=== PATIENT | male | born 1985 | race Caucasian/White ===

== ENCOUNTER 2022-11-02 09:36 | Emergency (ER) | payer OTHER, MEDICAID ==
[~2022-11-02] VITALS: Ht 177.8 cm; Wt 65.0 kg
[2022-11-02 10:45] VITALS: BP 139/77
[2022-11-02] MEDS ORDERED: IBUP800T27 PO ×2 (11:01)
[2022-11-02] MEDS ORDERED: IBUPROFEN 800 MG TAB PO ONE (11:15)
[2022-11-02] MEDS ORDERED: TRAM-297 PO (11:40)
== END 2022-11-02 11:31 | disposition home or self-care (01) ==
LOC: ER 09:36
DX: S62.356A Nondisplaced fracture of shaft of fifth metacarpal bone, right hand, initial encounter for closed fracture (principal); W22.8XXA Striking against or struck by other objects, initial encounter; Y93.89 Activity, other specified; Y92.89 Other specified places as the place of occurrence of the external cause; Y99.8 Other external cause status
CPT/HCPCS: 29125; 73130

== ENCOUNTER 2023-09-28 10:18 | Inpatient (IN) | payer OTHER, MEDICAID ==
[~2023-09-28] VITALS: Ht 177.8 cm; Wt 59.3 kg
[~2023-09-28 10:18] MED LIST: TRAM-297 PO
[2023-09-28] MEDS: ONDANSETRON HCL 4 MG/2 ML VIAL IV ONE ×2 (10:59→16:54)
[2023-09-28] MEDS: SODIUM CHLORIDE 0.9% 1,000 ML IVB ONE (10:59)
[2023-09-28 11:21] LABS: Alanine Aminotransferase 29 U/L (7-40); Albumin 5.4 g/dL (3.2-4.8); Alkaline Phosphatase 68 U/L (46-116); Anion Gap 14 (5-15); Aspartate Aminotransferase 24 U/L (13-40); BUN/Creatinine Ratio 14.4 (10.0-20.0); Blood Alcohol < 3.0 mg/dL (<10); Blood Urea Nitrogen 16 mg/dL (9-23); Carbon Dioxide 22 mmol/L (20-30); Chloride 98 mmol/L (98-107); Glucose 134 mg/dL (74-106); Potassium 4.7 mmol/L (3.5-5.1); Sodium 134 mmol/L (136-145)
[2023-09-28 11:22] LABS: Bilirubin, Total 0.7 mg/dL (0.2-1.0); Total Protein 8.3 g/dL (5.7-8.2)
[2023-09-28 11:23] LABS: INR 0.99 (0.9-1.15); Partial Thromboplastin Time 27.2 SEC (24.5-34.5); Prothrombin Time 10.4 sec (9.3-11.8)
[2023-09-28] MEDS: IOHEXOL 300 MG/ML 100ML BOTTLE IJ ONE (11:36)
[2023-09-28 11:37] LABS: Basophils # (auto) 0 10 ^3/uL (0-0.2); Basophils % (auto) 0.3 % (0.0-2.0); Eosinophils # (auto) 0 10 ^3/uL (0-0.8); Eosinophils % (auto) 0.1 % (0.0-7.0); Hematocrit 48.7 % (41.0-53.0); Hemoglobin 16.3 g/dL (13.5-17.5); Lymphocytes # (auto) 0.9 10 ^3/uL (0.4-5.4); Lymphocytes % (auto) 11.4 % (10.0-50.0); Mean Corpuscular Hemoglobin 29.7 pg (28.0-32.0); Mean Corpuscular Hgb Conc. 33.5 g/dL (32.0-36.0); Mean Corpuscular Volume 88.6 fL (80.0-100.0); Monocytes # (auto) 0.5 10 ^3/uL (0-1.3); Monocytes % (auto) 6.6 % (0.0-12.0); Neutrophils # (auto) 6.6 10 ^3/uL (1.6-8.6); Neutrophils % (auto) 81.6 % (37.0-80.0); Nucleated Red Blood Cells % 0.4 %; White Blood Cell 8.1 10^3/uL (4.4-10.8)
[2023-09-28] MEDS: PANTOPRAZOLE 40mg/50ML NS AE 50 ML IV ONE (11:53)
[2023-09-28] MEDS: PANTOPRAZOLE 80 MG in SODIUM CHL 0.9% 100 ML IV ONE (11:56)
[2023-09-28] MEDS: MORPHINE SULFATE INJ 2 MG/ml SYRG IV ONE (12:01)
[2023-09-28 12:47] LABS: Lipase 54 U/L (12-53); Magnesium 2.1 mg/dL (1.6-2.6)
[2023-09-28 12:54] LABS: Urine Bacteria NONE SEEN /hpf (None Seen); Urine Blood TRACE /uL (Negative); Urine Clarity Clear (Clear); Urine Color Yellow (Yellow); Urine Mucus FEW (None Seen); Urine Protein, UAD 2+ (Negative); Urine Specific Gravity 1.035 (1.001-1.035); Urine WBC <1 /hpf (0 - 3)
[2023-09-28 13:06] LABS: Amphetamine Screen, Urine Neg (NEGATIVE); Barbiturate Scree,Urine Neg (NEGATIVE); Benzodiazephine Screen, Urine Neg (NEGATIVE); Cannabinoid Screen, Urine Pos (NEGATIVE); Cocaine Screen, Urine Neg (NEGATIVE); Opiate Scree,Urine Pos (NEGATIVE); Phencyclidine Screen, Urine Neg (NEGATIVE)
[2023-09-28] MEDS: HYDROmorphone HCL 2 MG/ML VL/or syr IV ONE (16:53)
[2023-09-28] MEDS: D5W/LACTATED RINGERS 1,000 ML IV ONE (18:00)
[2023-09-28 18:03] VITALS: PULSE 98; RESP 17; O2SAT 98
[2023-09-28] MEDS: HYDROmorphone HCL 2 MG/ML VL/or syr IV PRN (18:36)
[2023-09-28 20:00] VITALS: PULSE 74; RESP 18; O2SAT 100
[2023-09-28] MEDS: ONDANSETRON HCL 4 MG/2 ML VIAL IV PRN (21:28)
[2023-09-28] MEDS: HYDROcodone-ACET 5/325MG TAB PO PRN (21:28)
[2023-09-28] MEDS: SODIUM CHLOR 0.9% PF (SALINE LOCK) 10ML VIAL/SYR IV SCH (22:06)
[2023-09-28] MEDS: hydrOXYzine 25 MG TAB or CAP PO SCH (22:08)
[2023-09-29] VITALS (9 sets, daily range): BP systolic 111–134; BP diastolic 66–89; PULSE 57–99; RESP 16–20; TEMP 97.9–98.3; O2SAT 95–99
[2023-09-29] MEDS: PANTOPRAZOLE 40 MG/10 ML VIAL INJ IV SCH (01:21)
[2023-09-29] MEDS ORDERED: PANT40T PO (04:15)
[2023-09-29] MEDS: ENOXAPARIN SOD 40 MG/0.4 ML SYRINGE SC SCH (09:54)
[2023-09-29] MEDS: HYDROmorphone HCL 2 MG/ML VL/or syr IV PRN (23:59)
[2023-09-30] VITALS (7 sets, daily range): BP systolic 118–139; BP diastolic 63–86; PULSE 50–92; RESP 16–21; TEMP 97.4–98.5; O2SAT 95–100
[2023-09-30 05:50] LABS: Lipase 31 U/L (12-53)
[2023-09-30] MEDS: metroNIDAZOLE 500MG/100ML 100 ML IV SCH (05:50)
[2023-09-30 05:51] LABS: Amylase 66 U/L (30-118)
[2023-09-30 07:44] LABS: Basophils # (auto) 0 10 ^3/uL (0-0.2); Basophils % (auto) 0.5 % (0.0-2.0); Eosinophils # (auto) 0 10 ^3/uL (0-0.8); Eosinophils % (auto) 0.7 % (0.0-7.0); Hematocrit 42.4 % (41.0-53.0); Hemoglobin 14.1 g/dL (13.5-17.5); Lymphocytes # (auto) 1.7 10 ^3/uL (0.4-5.4); Lymphocytes % (auto) 43.2 % (10.0-50.0); Mean Corpuscular Hemoglobin 29.2 pg (28.0-32.0); Mean Corpuscular Hgb Conc. 33.2 g/dL (32.0-36.0); Mean Corpuscular Volume 87.8 fL (80.0-100.0); Monocytes # (auto) 0.4 10 ^3/uL (0-1.3); Neutrophils # (auto) 1.7 10 ^3/uL (1.6-8.6); Neutrophils % (auto) 44.6 % (37.0-80.0); Nucleated Red Blood Cells % 0.1 %; Red Blood Cells 4.83 10^6/uL (4.5-5.90); Red Cell Distribution Width 13.7 % (11.8-14.3); White Blood Cell 3.8 10^3/uL (4.4-10.8)
[2023-09-30 07:56] LABS: Alanine Aminotransferase 28 U/L (7-40); Albumin 4.7 g/dL (3.2-4.8); Alkaline Phosphatase 57 U/L (46-116); Anion Gap 10 (5-15); Aspartate Aminotransferase 35 U/L (13-40); BUN/Creatinine Ratio 16.5 (10.0-20.0); Blood Urea Nitrogen 17 mg/dL (9-23); Calcium 9.8 mg/dL (8.5-10.1); Carbon Dioxide 27 mmol/L (20-30); Chloride 104 mmol/L (98-107); Glucose 79 mg/dL (74-106); Potassium 3.7 mmol/L (3.5-5.1); Sodium 141 mmol/L (136-145)
[2023-09-30 07:57] LABS: Bilirubin, Total 0.7 mg/dL (0.2-1.0)
[2023-09-30] MEDS: levoFLOXacin 500MG 100 ML IV SCH (08:47)
[2023-09-30] MEDS: ACETAMINOPHEN 325 MG TAB PO PRN (15:59)
[2023-09-30] MEDS: PANTOPRAZOLE 40 MG/10 ML VIAL INJ IV SCH (21:18)
[2023-09-30] MEDS ORDERED: MORPHINE SULFATE INJ 2 MG/ml SYRG IV PRN (23:45)
[2023-10-01] VITALS (7 sets, daily range): BP systolic 112–132; BP diastolic 76–94; PULSE 66–99; RESP 16–20; TEMP 98.4–98.8; O2SAT 97–100
[2023-10-01] MEDS: LORazepam 2MG/ML-1ML VIAL IV ONE (00:02)
[2023-10-01 05:40] LABS: Basophils # (auto) 0 10 ^3/uL (0-0.2); Basophils % (auto) 0.2 % (0.0-2.0); Eosinophils # (auto) 0 10 ^3/uL (0-0.8); Eosinophils % (auto) 0.6 % (0.0-7.0); Hemoglobin 13.7 g/dL (13.5-17.5); Lymphocytes # (auto) 1.1 10 ^3/uL (0.4-5.4); Lymphocytes % (auto) 23.7 % (10.0-50.0); Mean Corpuscular Hemoglobin 29.9 pg (28.0-32.0); Mean Corpuscular Hgb Conc. 34.3 g/dL (32.0-36.0); Monocytes # (auto) 0.5 10 ^3/uL (0-1.3); Monocytes % (auto) 11.2 % (0.0-12.0); Neutrophils # (auto) 2.9 10 ^3/uL (1.6-8.6); Neutrophils % (auto) 64.3 % (37.0-80.0); Nucleated Red Blood Cells % 0.1 %; Red Cell Distribution Width 13.3 % (11.8-14.3); White Blood Cell 4.5 10^3/uL (4.4-10.8)
[2023-10-01 06:07] LABS: Alanine Aminotransferase 23 U/L (7-40); Albumin 4.4 g/dL (3.2-4.8); Alkaline Phosphatase 54 U/L (46-116); Anion Gap 8 (5-15); Aspartate Aminotransferase 25 U/L (13-40); BUN/Creatinine Ratio 17.2 (10.0-20.0); Bilirubin, Total 0.8 mg/dL (0.2-1.0); Blood Urea Nitrogen 16 mg/dL (9-23); Calcium 9.4 mg/dL (8.5-10.1); Carbon Dioxide 26 mmol/L (20-30); Chloride 104 mmol/L (98-107); Glucose 74 mg/dL (74-106); Potassium 3.7 mmol/L (3.5-5.1); Sodium 138 mmol/L (136-145); Total Protein 6.6 g/dL (5.7-8.2)
[2023-10-01 08:53] LABS: Hepatitis B Surface Antigen Negative (Negative)
[2023-10-01] MEDS: SUCRALFATE 1 GM/10 ML ORAL SUSP PO SCH (17:39)
[2023-10-02] VITALS (8 sets, daily range): BP systolic 119–138; BP diastolic 75–91; PULSE 68–100; RESP 17–22; TEMP 97.7–98.7; O2SAT 96–99
[2023-10-02] MEDS: ALPRAZolam 0.25 MG TAB PO SCH (05:36)
[2023-10-02] MEDS: DOCUSATE SOD 100 MG CAP PO PRN (05:37)
[2023-10-02 06:29] LABS: Basophils # (auto) 0 10 ^3/uL (0-0.2); Basophils % (auto) 0.5 % (0.0-2.0); Eosinophils # (auto) 0.1 10 ^3/uL (0-0.8); Eosinophils % (auto) 1.7 % (0.0-7.0); Hemoglobin 13.7 g/dL (13.5-17.5); Lymphocytes # (auto) 1.3 10 ^3/uL (0.4-5.4); Lymphocytes % (auto) 39.4 % (10.0-50.0); Mean Corpuscular Hemoglobin 29.9 pg (28.0-32.0); Mean Corpuscular Hgb Conc. 34.3 g/dL (32.0-36.0); Mean Corpuscular Volume 87.1 fL (80.0-100.0); Monocytes # (auto) 0.4 10 ^3/uL (0-1.3); Monocytes % (auto) 13.4 % (0.0-12.0); Neutrophils # (auto) 1.4 10 ^3/uL (1.6-8.6); Nucleated Red Blood Cells % 0.1 %; Red Blood Cells 4.59 10^6/uL (4.5-5.90); Red Cell Distribution Width 13.5 % (11.8-14.3); White Blood Cell 3.2 10^3/uL (4.4-10.8)
[2023-10-02 06:49] LABS: Alanine Aminotransferase 20 U/L (7-40); Albumin 4.7 g/dL (3.2-4.8); Alkaline Phosphatase 58 U/L (46-116); Anion Gap 10 (5-15); Aspartate Aminotransferase 25 U/L (13-40); BUN/Creatinine Ratio 10.9 (10.0-20.0); Bilirubin, Total 0.8 mg/dL (0.2-1.0); Blood Urea Nitrogen 10 mg/dL (9-23); Calcium 9.8 mg/dL (8.5-10.1); Carbon Dioxide 26 mmol/L (20-30); Chloride 103 mmol/L (98-107); Glucose 83 mg/dL (74-106); Potassium 3.8 mmol/L (3.5-5.1); Sodium 139 mmol/L (136-145)
[2023-10-02 06:50] LABS: Total Protein 6.9 g/dL (5.7-8.2)
[2023-10-02 08:06] LABS: PSA Free 0.07 ng/mL; Prostate Specific Antigen 0.2 ng/mL (0.0-4.0)
[2023-10-02] MEDS: guaiFENesin-DM 100/10mg/5ml SYR PO PRN (22:18)
[2023-10-03] MEDS: TEMAZEPAM 15 MG CAP PO ONE (00:30)
[2023-10-03 05:00] VITALS: BP 127/80; PULSE 67; RESP 20; TEMP 98.1; O2SAT 98
[2023-10-03 06:20] LABS: Basophils # (auto) 0 10 ^3/uL (0-0.2); Basophils % (auto) 0.4 % (0.0-2.0); Eosinophils # (auto) 0 10 ^3/uL (0-0.8); Eosinophils % (auto) 1.3 % (0.0-7.0); Hematocrit 37.4 % (41.0-53.0); Hemoglobin 13.1 g/dL (13.5-17.5); Lymphocytes # (auto) 1.4 10 ^3/uL (0.4-5.4); Lymphocytes % (auto) 36.3 % (10.0-50.0); Mean Corpuscular Hemoglobin 29.9 pg (28.0-32.0); Mean Corpuscular Hgb Conc. 34.9 g/dL (32.0-36.0); Mean Corpuscular Volume 85.5 fL (80.0-100.0); Monocytes # (auto) 0.6 10 ^3/uL (0-1.3); Monocytes % (auto) 16.2 % (0.0-12.0); Neutrophils # (auto) 1.7 10 ^3/uL (1.6-8.6); Neutrophils % (auto) 45.8 % (37.0-80.0); Nucleated Red Blood Cells % 0.2 %; Red Blood Cells 4.37 10^6/uL (4.5-5.90); Red Cell Distribution Width 13.6 % (11.8-14.3); White Blood Cell 3.7 10^3/uL (4.4-10.8)
[2023-10-03 06:46] LABS: Alanine Aminotransferase 26 U/L (7-40); Albumin 4.4 g/dL (3.2-4.8); Alkaline Phosphatase 54 U/L (46-116); Anion Gap 8 (5-15); Aspartate Aminotransferase 34 U/L (13-40); BUN/Creatinine Ratio 8.4 (10.0-20.0); Bilirubin, Total 0.7 mg/dL (0.2-1.0); Blood Urea Nitrogen 8 mg/dL (9-23); Calcium 9.5 mg/dL (8.5-10.1); Carbon Dioxide 27 mmol/L (20-30); Chloride 104 mmol/L (98-107); Glucose 85 mg/dL (74-106); Potassium 4.1 mmol/L (3.5-5.1); Sodium 139 mmol/L (136-145); Total Protein 6.5 g/dL (5.7-8.2)
[2023-10-03 08:09] LABS: INR 1.13 (0.9-1.15); Partial Thromboplastin Time 29.9 SEC (24.5-34.5); Prothrombin Time 11.8 sec (9.3-11.8)
[2023-10-03 08:23] VITALS: BP 131/83; PULSE 55; RESP 20; TEMP 98.3; O2SAT 99
[2023-10-03 08:30] VITALS: PULSE 55; RESP 20; O2SAT 99
[2023-10-03] MEDS ORDERED: LIDOCAINE VISCOUS 2% 15ML UD ONE ×2 (10:59→12:17)
[2023-10-03] MEDS ORDERED: MIDAZOLAM HCL 5 MG/ML-1ML VIAL ONE (10:59)
[2023-10-03] MEDS ORDERED: fentaNYL CITRATE 100 MCG/2 ML VL ONE ×2 (11:00→12:33)
[2023-10-03] MEDS ORDERED: SODIUM CHLORIDE LOCK 10 ML ONE (11:00)
[2023-10-03] MEDS ORDERED: diphenhdrAMINE HCL 50 MG/1 ML VL ONE (11:00)
[2023-10-03] MEDS ORDERED: MIDAZOLAM HCL 2MG/2ML 2ml VIAL (1mg/ml) ONE (12:33)
[2023-10-03] MEDS ORDERED: PROPOFOL 10 MG/ML 20 ML IV ONE (12:44)
[2023-10-03] MEDS ORDERED: DexAMETHasone SOD PHOS 10MG/1ML VIAL INJ ONE (12:44)
[2023-10-03 12:55] VITALS: O2SAT 96
[2023-10-03] MEDS ORDERED: MIDAZOLAM HCL 2MG/2ML 2ml VIAL (1mg/ml) IV PRN (13:00)
[2023-10-03] MEDS ORDERED: ONDANSETRON HCL 4 MG/2 ML VIAL IV PRN (13:00)
[2023-10-03] MEDS ORDERED: LABETALOL HCL 5 MG/ML 4ML SYRINGE IV PRN (13:00)
[2023-10-03] MEDS ORDERED: ePHEDrine SULFATE 50 MG/ML AMP IV PRN (13:00)
[2023-10-03] MEDS ORDERED: MORPHINE SULFATE 4 MG/ML SYR/VIAL IV PRN (13:00)
[2023-10-03] MEDS ORDERED: HYDROmorphone HCL 2 MG/ML VL/or syr IV PRN (13:00)
[2023-10-03 17:10] VITALS: BP 131/87; PULSE 109; RESP 20; TEMP 98; O2SAT 94
[2023-10-03] MEDS: SUCRALFATE 1 GM TAB PO SCH (18:21)
[2023-10-03 22:00] VITALS: BP 129/80; PULSE 90; RESP 18; TEMP 98.1; O2SAT 97
[2023-10-03] MEDS: PANTOPRAZOLE 40 MG TAB PO SCH (22:06)
[2023-10-04 05:00] VITALS: BP 116/72; PULSE 55; RESP 18; TEMP 98.4; O2SAT 99
[2023-10-04 06:08] LABS: Basophils # (auto) 0 10 ^3/uL (0-0.2); Basophils % (auto) 0.2 % (0.0-2.0); Eosinophils # (auto) 0 10 ^3/uL (0-0.8); Eosinophils % (auto) 0.1 % (0.0-7.0); Hematocrit 38.2 % (41.0-53.0); Hemoglobin 12.9 g/dL (13.5-17.5); Lymphocytes # (auto) 1.1 10 ^3/uL (0.4-5.4); Lymphocytes % (auto) 25.4 % (10.0-50.0); Mean Corpuscular Hemoglobin 29.2 pg (28.0-32.0); Mean Corpuscular Hgb Conc. 33.7 g/dL (32.0-36.0); Mean Corpuscular Volume 86.7 fL (80.0-100.0); Monocytes # (auto) 0.6 10 ^3/uL (0-1.3); Monocytes % (auto) 12.7 % (0.0-12.0); Neutrophils # (auto) 2.7 10 ^3/uL (1.6-8.6); Neutrophils % (auto) 61.6 % (37.0-80.0); Nucleated Red Blood Cells % 0.1 %; Red Blood Cells 4.41 10^6/uL (4.5-5.90); Red Cell Distribution Width 13.7 % (11.8-14.3); White Blood Cell 4.4 10^3/uL (4.4-10.8)
[2023-10-04 06:31] LABS: Alanine Aminotransferase 30 U/L (7-40); Albumin 4.4 g/dL (3.2-4.8); Alkaline Phosphatase 52 U/L (46-116); Anion Gap 8 (5-15); Aspartate Aminotransferase 29 U/L (13-40); BUN/Creatinine Ratio 12.4 (10.0-20.0); Bilirubin, Total 0.6 mg/dL (0.2-1.0); Blood Urea Nitrogen 11 mg/dL (9-23); Calcium 9.5 mg/dL (8.5-10.1); Carbon Dioxide 27 mmol/L (20-30); Chloride 105 mmol/L (98-107); Glucose 104 mg/dL (74-106); Potassium 3.3 mmol/L (3.5-5.1); Sodium 140 mmol/L (136-145); Total Protein 6.4 g/dL (5.7-8.2)
[2023-10-04 07:50] VITALS: BP 139/86; PULSE 95; RESP 20; TEMP 97.5; O2SAT 96
[2023-10-04] MEDS: POTASSIUM CHL 20 Meq TABLET PO ONE (08:40)
[2023-10-04 09:00] VITALS: BP 139/86; PULSE 95; RESP 20; TEMP 97.5; O2SAT 96
[2023-10-04] MEDS ORDERED: SUCR1TAB PO (10:28)
[2023-10-04] MEDS ORDERED: PANT40T PO (10:28)
[2023-10-04] MEDS ORDERED: TRAM50TA2 PO (10:28)
[2023-10-04 12:54] VITALS: BP 127/83; PULSE 69; RESP 18; TEMP 97.8; O2SAT 98
[2023-10-04 13:00] VITALS: BP 127/83; PULSE 69; RESP 18; TEMP 97.8; O2SAT 98
== END 2023-10-04 15:35 | disposition home or self-care (01) | DRG 380 ==
LOC: ER 10:18 → EDBD 10:18 → OVERFLOW 17:53 → CENTRAL 09-29 02:35
PROVIDERS: ADMIT Internal Medicine; ATTEND Internal Medicine
PROC: 0DB68ZX Excision of Stomach, Via Natural or Artificial Opening Endoscopic, Diagnostic (ICD-10-PCS; 2023-10-03)
PROC: 0DB48ZX Excision of Esophagogastric Junction, Via Natural or Artificial Opening Endoscopic, Diagnostic (ICD-10-PCS; 2023-10-03)
PROC: 0DB98ZX Excision of Duodenum, Via Natural or Artificial Opening Endoscopic, Diagnostic (ICD-10-PCS; principal; 2023-10-03 12:35)
DX: K22.10 Ulcer of esophagus without bleeding (principal); N17.0 Acute kidney failure with tubular necrosis; E87.1 Hypo-osmolality and hyponatremia; K92.0 Hematemesis; K27.9 Peptic ulcer, site unspecified, unspecified as acute or chronic, without hemorrhage or perforation; K83.8 Other specified diseases of biliary tract; K29.70 Gastritis, unspecified, without bleeding; F19.10 Other psychoactive substance abuse, uncomplicated; H91.90 Unspecified hearing loss, unspecified ear; R68.89 Other general symptoms and signs; K44.9 Diaphragmatic hernia without obstruction or gangrene; K31.9 Disease of stomach and duodenum, unspecified; K29.90 Gastroduodenitis, unspecified, without bleeding; Z82.3 Family history of stroke; Z80.3 Family history of malignant neoplasm of breast
CPT/HCPCS: 36415; 74177; 74181; 76705; 80053; 80307; 80320; 81001; 82150; 83690; 83735; 84154; 85025; 85610; 85730; 86803; 86850; 86900; 86901; 87340; C9113; G0378; J1100; J1956; J2250; J2405; J2704; J3490

== ENCOUNTER 2023-10-13 01:24 | Emergency (ER) | payer OTHER, MEDICAID ==
[~2023-10-13] VITALS: Ht 177.8 cm; Wt 63.5 kg
[~2023-10-13 01:24] MED LIST changes: +PANT40T PO; +SUCR1TAB PO; +TRAM50TA2 PO
[2023-10-13 02:16] VITALS: BP 121/77; PULSE 86; RESP 16; TEMP 98.9; O2SAT 99
[2023-10-13] MEDS ORDERED: VANCOMYCIN 1GM/200ML 200 ML IV ONE (02:45)
[2023-10-13] MEDS ORDERED: CLIN300C70 PO (02:56)
[2023-10-13] MEDS ORDERED: BACDST PO (02:56)
[2023-10-13] MEDS ORDERED: HYDR-4902 PO (02:56)
[2023-10-13] MEDS: HYDROcodone-ACET 5/325MG TAB PO ONE (05:30)
[2023-10-13] MEDS: PIPERACILLIN-TAZOB 3.375GM 100 ML IV ONE (05:49)
== END 2023-10-13 06:47 | disposition home or self-care (01) ==
LOC: ER 01:24
DX: L02.31 Cutaneous abscess of buttock (principal); Z79.899 Other long term (current) drug therapy
CPT/HCPCS: 96365; 99284; J2543

== ENCOUNTER 2024-11-10 21:08 | Emergency (ER) | payer OTHER, MEDICAID ==
[~2024-11-10] VITALS: Ht 177.8 cm; Wt 61.0 kg
[~2024-11-10 21:08] MED LIST changes: +BACDST PO; +CLIN1CAP70 PO; +HYDR-4902 PO
[2024-11-11 01:16] VITALS: BP 132/89; PULSE 86; RESP 20; TEMP 97.8; O2SAT 99
[2024-11-11] MEDS ORDERED: IBUP-1456 PO (01:33)
[2024-11-11] MEDS ORDERED: DOXY100C4 PO (01:33)
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
[2024-11-11] MEDS: HYDROcodone-ACET 5/325MG TAB PO ONE (01:39)
[2024-11-11] MEDS: cefTRIAXone SOD 1,000 MG VL IM ONE (01:39)
== END 2024-11-11 01:56 | disposition home or self-care (01) ==
LOC: ER 21:08
DX: L08.9 Local infection of the skin and subcutaneous tissue, unspecified (principal); Z79.899 Other long term (current) drug therapy; W57.XXXA Bitten or stung by nonvenomous insect and other nonvenomous arthropods, initial encounter; Y93.89 Activity, other specified; Y92.89 Other specified places as the place of occurrence of the external cause; Y99.8 Other external cause status
CPT/HCPCS: 96372; 99283; J0696